=== PATIENT | male | born 2005 | race Two or more races ===

== ENCOUNTER 2025-08-08 12:56 | Emergency (ER) | payer OTHER ==
[~2025-08-08] VITALS: Ht 132.1 cm; Wt 90.7 kg
[2025-08-08 13:01] VITALS: BP 140/115; TEMP 98.4
[2025-08-08] MEDS ORDERED: MUPI1OIN5 TP (14:52)
[2025-08-08 15:24] VITALS: O2SAT 99
== END 2025-08-08 15:24 | disposition home or self-care (01) ==
LOC: ER 13:03
DX: S81.012A Laceration without foreign body, left knee, initial encounter (principal); Q05.9 Spina bifida, unspecified; R03.0 Elevated blood-pressure reading, without diagnosis of hypertension; Z91.040 Latex allergy status; X58.XXXA Exposure to other specified factors, initial encounter; Y93.89 Activity, other specified; Y92.89 Other specified places as the place of occurrence of the external cause; Y99.9 Unspecified external cause status
CPT/HCPCS: 99283; 73564; A6403

== ENCOUNTER 2025-09-12 18:42 | Emergency (ER) | payer OTHER ==
[~2025-09-12] VITALS: Ht 91.4 cm; Wt 78.5 kg
[~2025-09-12 18:42] MED LIST: MUPI1OIN5 TP
[2025-09-12 19:35] LABS: PLATELET COUNT (AUTO) 397 K/uL (150-450); RED BLOOD CELL COUNT(AUTO) 4.96 MIL/uL (4.5-6.0); RED CELL DISTRIBUTION WIDTH 13.1 % (11.5-15.0); WHITE BLOOD COUNT (AUTO) 9.5 K/uL (4.3-11.0)
[2025-09-12] MEDS ORDERED: LEVETIRACETAM (500MG) 500 MG/5 ML VIAL IV ONE (19:35)
[2025-09-12 19:43] LABS: CALCIUM, SERUM 9.1 mg/dL (8.5-10.1); CREATININE 0.6 mg/dL (0.6-1.3); SODIUM SERUM 143 mmol/L (136-145); UREA NITROGEN, BLOOD 15 mg/dL (7-18)
[2025-09-12 19:44] LABS: ALCOHOL, BLOOD < 3 mg/dL (0-10)
[2025-09-12] MEDS: IV NS 0.9% 1,000 ML BAG IV ONE (19:44)
[2025-09-12] MEDS: LEVETIRACETAM (500MG) 1,000 MG in IV NS 0.9% 90 ML IV SCH (19:44)
[2025-09-12 21:23] VITALS: BP 120/85; TEMP 98; O2SAT 99
== END 2025-09-12 21:23 | disposition home or self-care (01) ==
LOC: ER 18:46
DX: G40.909 Epilepsy, unspecified, not intractable, without status epilepticus (principal); E66.01 Morbid (severe) obesity due to excess calories; Q05.9 Spina bifida, unspecified; R00.0 Tachycardia, unspecified; Z91.040 Latex allergy status; Z68.45 Body mass index [BMI] 70 or greater, adult
CPT/HCPCS: 99284; 96365; 93005; 85025; 80048; 80320; 80307; J7030 ×2; J1953 ×2; 36415; G0480